=== PATIENT | male | born 1965 | race Caucasian/White ===

== ENCOUNTER 2016-11-16 14:58 | Emergency (ER) | payer BC ==
[2016-11-16 15:28] VITALS: BP 134/67
[2016-11-16] MEDS ORDERED: MECLIZINE HCL 25 MG TABLET PO ONE ×2 (16:02→17:12)
--- NOTE | 2016-11-16 16:03 | ERNOTE ---
Dizziness ER Record Date of Service: 11/16/16 Presenting Symptoms: dizziness Time Seen by Provider: 11/16/16 15:47 Source: patient, RN notes reviewed Exam Limitations: no limitations Immunizations: IMMUNIZATION HX Immunizations Up to Date Yes History of Influenza Vaccine No Hx Pneumococcal Vaccination No Allergies/Adverse Reactions: Allergies Allergy/AdvReac Type Severity Reaction Status Date / Time green pepper Allergy Severe Other Verified 11/16/16 15:28 onion Allergy Verified 11/16/16 15:28 Home Medications: HOME MEDICATIONS Tamsulosin HCl 0.4 mg PO DAILY 12/17/12 [Last Taken Unknown] Finasteride [Propecia] 1 mg PO DAILY 02/16/13 [Last Taken Unknown] Folic Acid 1 mg PO DAILY 02/16/13 [Last Taken Unknown] Hydroxychloroquine Sulfate [Plaquenil] 200 mg PO BID 02/16/13 [Last Taken Unknown] Lansoprazole [Prevacid] 30 mg PO QAM 02/16/13 [Last Taken Unknown] Methotrexate Sodium [Methotrexate] 7.5 mg PO BID 02/16/13 [Last Taken Unknown] Multivitamin [Multivitamins] 1 each PO DAILY 02/16/13 [Last Taken Unknown] Pregabalin [Lyrica] 100 mg PO BID 02/16/13 [Last Taken Unknown] Solifenacin Succinate [Vesicare] 5 mg PO DAILY 02/16/13 [Last Taken Unknown] Testosterone Cypionate [Depo-Testosterone] 200 mg IM Q14D 02/16/13 [Last Taken Unknown] buPROPion HCL [Wellbutrin] 100 mg PO DAILY 04/13/13 [Last Taken Unknown] Methylphenidate HCl [Ritalin] 10 mg PO 0700,1200 11/09/13 [Last Taken Unknown] Ddavp 0.2 mg PO HS 03/24/14 [Last Taken Unknown] Ropinirole HCl [Requip] 2 mg PO 0700,1200 03/24/14 [Last Taken Unknown] Ibuprofen [Motrin] 800 mg PO QID #100 tab 02/17/16 [Last Taken Unknown] - History of Present Illness Narrative: Isidoro is a 51 year old male brought to the ED by his for dizziness that began this morning. He reports getting out of bed, becoming dizzy, and nearly falling on his way to the bathroom. He has had no prior problems with dizziness. He reports feeling well yesterday. He has been having headaches recently but was evaluated by neurology who felt they were related to his MS. He states that his headache is not as bad as usual today. He reports sinus congestion and left ear pain, but recently saw ENT and had a clear sinus CT. Date (Duration): 11/16/16 Time (Timing): 07:30 Timing and Duration: sudden onset, still present, constant Severity: max: severe Severity: currently: moderate Associated Symptoms: Present: ringing/roaring in ear, ear pain, headache. Absent: hearing loss, nausea, vomiting, weakness, numbness, sense of confusion Sense of movement: Present: vague Fainted/near fainted while:: Present: standing Decreased ability to stand/walk:: Present: difficult, off balance Usually:: Present: walks w/o assistance Modifying Factors - (Improves): Reports: other - rest Modifying Factors - (Worsens): Reports: changing position, movement of head, standing position Review of Systems - Review of Systems Constitutional: Absent: fever, chills EYE: Absent: eye pain, vision changes ENT: Present: ear pain, nose congestion, nasal drainage. Absent: ear discharge , sore throat Respiratory: Absent: shortness of breath, cough Cardiology: Absent: chest pain, palpitations Gastrointestinal/Abdominal: Absent: nausea, vomiting Genitourinary: Present: no symptoms reported Musculoskeletal: Absent: muscle pain, neck pain Skin: Absent: rash, lesions Neurological: Present: headache, dizziness/light-headedness. Absent: weakness, numbness, tingling Endocrine: Absent: other - hyperglycemia Hematologic/Lymphatic: Present: no symptoms reported Psych: Present: anxiety, depressed - Patient's Past Medical History Patient History - Medical: Anemia, Anxiety, Arthritis, Depression, GERD, Obesity , Rheumatoid Arthritis, Other Patient History - Cardiac/Respiratory: Asthma - all, Hypertension - there is Patient History - Cancer: No Hx of Cancer Patient History - Surgical Procedures: Cholecystectomy, T & A - Family History Mother Family History - Medical: , Alzheimer's Disease, Rheumatoid Arthritis Family History - Cardiac/Respiratory: No pertinent hx - Social History Living Situations: spouse Smoking Status: Never smoker Alcohol Use: none Drug Use: none Physical Exam - Physical Exam General Appearance: Present: wd/wn, alert, no apparent distress, other - appears uncomfortable Eye Exam: Normal inspection: bilateral, PERRL: bilateral, EOMI: bilateral Ears, Nose, Throat: Present: hearing grossly normal, abnormal TM (R), normal pharynx. Absent: abnormal TM (L), nasal congestion, sinus pain/drainage Neck: Present: normal inspection, nontender, supple Respiratory: Present: no respiratory distress, normal breath sounds, lungs clear Cardiovascular/Chest: Present: no murmur, normal peripheral pulses, irregularly irregular Neurological Exam: Present: alert, oriented, no motor/sensory deficits, other - flat affect Skin Exam: Present: normal color, warm/dry ED Progress - Results and Orders Patient's Lab Results:: I have reviewed the patient's lab results. - Vital Signs Patient's Vital Signs:: I have reviewed the patient's vital signs. Vital Signs: Vital Signs 11/16/16 15:25 Temperature 35.9 C L Pulse Rate 56 L Respiratory 12 Rate Blood Pressure 134/67 O2 Sat by Pulse 99 Oximetry - EKG EKG: NSR, other - freq PVC's EKG read: Reviewed by me - Progress/Reassessment Chief Complaint: Dizziness Progress:: Improved Departure Clinical Impression: Dizziness - Departure Disposition: Home Follow Up Needed Condition: Fair Instructions: Form - Excuse from Work, School, or Physical Activity, Dizziness , [id number] Additional Instructions: Contact your doctor on Thursday for follow up regarding vestibular rehab therapy Referrals: Raquel Galan MD [Primary Care Provider] -
[2016-11-16] MEDS ORDERED: MECLIZINE HCL 25 MG TABLET ONE ×2 (16:07→17:13)
[2016-11-16 16:20] LABS: Hematocrit 39.1 % (42.0-52.0); Hemoglobin 12.8 gm/dL (13.5-18.0); Mean Cell Volume 84.1 fl (78-100); Mean Corpuscular Hemoglobin 27.5 pg (27-31); Mean Corpuscular Hgb Conc 32.7 g/dl (32-36); Mean Platelet Volume 9.2 fl (6.0-9.5); Neutrophil # 1.8 K/mm3 (1.3-6.0); Neutrophil % 56.5 % (42-75.0); Platelet Count 224 K/mm3 (150-450); Red Blood Count 4.65 M/mm3 (4.7-6.0); Red Cell Distribution Width 13.7 % (11.5-14.0); White Blood Count 3.1 K/mm3 (4.0-10.5)
[2016-11-16 16:43] LABS: Albumin * 3.1 gm/dl (3.4-5.0); Anion Gap 11.2 mmol/L (6.8-13.8); Bilirubin, Total 0.6 mg/dL (0.0-1.1); Ca. Corrected For Albumin 8.8 mg/dL (8.4-10.2); Calcium * 8.4 mg/dL (7.9-10.9); Carbon Dioxide 26.8 mmol/L (24-32.6); Total Protein 6.6 gm/dL (6.2-8.2)
== END 2016-11-16 17:22 | disposition home or self-care (01) ==
LOC: ER 14:58
DX: R42 Dizziness and giddiness (principal); Z90.49 Acquired absence of other specified parts of digestive tract

== ENCOUNTER 2017-02-10 17:46 | Emergency (ER) | payer BC ==
[2017-02-10] MEDS ORDERED: METHYLPREDNISOLONE ACETATE 80 MG/ML VIAL ONE (19:43)
--- OUTSIDE RECORDS SUMMARY | 2017-02-10 21:52 | XMS REPORT | Continuity of Care Document ---
:1965 Author Organization [facility] ([facility]) Address [address] [place] [address] Phone [phone] Care Team Providers Name Role Phone Raquel Galan Primary Care Provider [phone] Source Comments This disclosure is being made pursuant to the Care Everywhere program, applicable federal and state laws, and may not contain all informaitonavailable regarding this patient.[facility] ([facility]) Active Allergies and Adverse Reactions Allergen Noted Date Severity Reactions Comments Green Pepper 04/22/2011 OTHER Patient reported having convulsions after eating peppers. No Known Drug Allergies 07/08/2011 OTHER Onion 04/22/2011 OTHER Patient reported convulsions after eating onions. Current Medications Prescription Sig. Disp. Refills Start End Date Status Date pregabalin (LYRICA) 100 Take 200 mg by Active mg capsule mouth at bedtime. ropinirole (REQUIP) 1 Take 2 mg by mouth Active mg tablet 3 times daily. lansoprazole 30 mg Take 30 mg by mouth Active capsule daily. solifenacin (VESICARE) Take 10 mg by mouth Active 10 mg tablet daily. tamsulosin 0.4 mg ER Take 0.4 mg by Active capsule mouth daily. OTHER Trimix Active desmopressin 0.2 mg Take 0.2 mg by Active tablet mouth at bedtime. methylphenidate Take 10 mg by mouth Active (RITALIN) 10 mg tablet 2 times daily. buPROPion 100 mg tablet Take 100 mg by Active mouth daily. finasteride 5 mg tablet Take 5 mg by mouth Active daily. MULTIVITS-MINERALS/FA/L Take 1 Tab by mouth Active YCOPENE (ONE-A-DAY daily. MEN'S PO) CLONAZEPAM 0.5 mg 0.5 Tabs at bedtime 1 Active tablet 5 peginterferon beta-1a Inject 125 mcg Active (PLEGRIDY) 125 mcg/0.5 subcutaneously mL syrg injection every 14 days syringe testosterone cypionate 3 Active 200 mg/mL injection 6 zalePLON 10 mg capsule Take 10 mg by mouth 5 Active at bedtime. 6 predniSONE 5 mg tablet 5 mg daily for 2 30 tablet 0 Active weeks then 2.5 mg 7 daily for 2 weeks. meloxicam 15 mg tablet Take 1 tablet (15 90 tablet 3 Active mg total) by mouth 7 daily. folic acid 1 mg tablet Take 2 tablets (2 180 tablet 3 Active mg total) by mouth 7 daily. sulfaSALAzine 500 mg Take 3 tablets 540 tablet 1 Active tablet (1,500 mg total) by 7 mouth 2 times daily. minocycline 100 mg Take 1 capsule (100 180 capsule 3 Active capsule mg total) by mouth 7 2 times daily. methotrexate 2.5 mg Take 6 tablets (15 72 tablet 1 Active tablet mg total) by mouth 7 every week. hydroxychloroquine 200 Take 1 tablet (200 180 tablet 3 Active mg tablet mg total) by mouth 7 2 times daily. Active Problems Problem Noted Date Encounter for long-term (current) use of high-risk medication 09/03/2012 Rheumatoid arthritis with rheumatoid factor of multiple sites without 2011 organ or systems involvement Overview: Diagnosed in 06/2012,positive RF and anti-CCP, on MTX & HCQ (last eye exam ~) In 04/2013 found to have mild leukopenia & lymphopenia, folic acid increased to 5 mg/day sulfasalazine added in June 2015 - present Joint pain 07/01/2012 MS (multiple sclerosis) 12/17/2011 Pain in joint, shoulder region 11/12/2011 Status post shoulder surgery 11/12/2011 Resolved Problems Problem Noted Date Resolved Date Arthritis 07/01/2012 07/01/2012 Most Recent Encounters Date Type Specialty Providers Description 01/09/2017 Office Visit Pathology Avinash Taylor, FERNY Chief Comp: Patient Lab Services, Pfp Reported Reason For Visit 01/09/2017 Office Visit Med Rheumatology Acacia Miguel Dx: Seropositive MD rheumatoid arthritis of Avinash Taylor PA-C multiple sites (Primary Dx) 12/19/2016 Office Visit Med Rheumatology Default, Other Billg Subj: RE: Appointment - Defo canceled Avinash Taylor PA-C 12/15/2016 Telephone Med Rheumatology Acacia Miguel Dx: Rheumatoid MD arthritis with rheumatoid factor of multiple sites without organ or systems involvement (Primary Dx) 12/08/2016 Refill Med Rheumatology Avinash Taylor PA-C Dx: Rheumatoid arthritis with rheumatoid factor of multiple sites without organ or systems involvement (Primary Dx) Immunizations Name Dates Previously Given Next Due Influenza, unspecified 08/24/2015 Social History Tobacco Use Types Packs/Day Years Used Date Never Smoker Smokeless Tobacco: Never Used Alcohol Use Drinks/Week oz/Week Comments No Last Filed Vital Signs Vital Sign Reading Time Taken Blood Pressure 137/88 01/09/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 Pulse 100 01/09/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 Temperature 37.2 C (99 F) 01/09/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 Respiratory Rate - - Height 1.64 m (5' 4.57") 01/09/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 Weight 118.5 kg (261 lb 3.9 oz) 01/09/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 Body Mass Index 44.06 01/09/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 Oxygen Saturation - - Plan of Care Date Type Specialty Providers Description 07/17/2017 Appointment Med Rheumatology Acacia Miguel MD Subj: Appointment [address] [place] [address] [phone] (Fax) Health Maintenance Due Date Last Done Comments Hepatitis B Vaccine (1 of 3 - Primary Series) 1965 Tdap Vaccine 1978 Lipid Disorder Screening 1985 MMR Vaccine 1985 Td Vaccine 1985 Influenza Vaccine: Seasonal (#1) 06/16/2016 08/24/2015 Results from Last 3 Months BLOOD CELL MORPHOLOGY (01/09/2017 1:57 PM) Specimen Whole Blood CREATININE (01/09/2017 1:57 PM) Component Value Range Creatinine 0.8Comment: 0.6-1.2 mg/dL Creatinine switched to enzymatic method on 03/25/2011.GFR equation switched to IDMS-traceable MDRD equation on 03/25/2011. Calculated GFR values are not valid in clinical settings where serum creatinine is changing. Calculated GFR >90 >60 mL/min/1.73 m2 Specimen Blood ASPARTATE AMINOTRANSFERASE (01/09/2017 1:57 PM) Component Value Range AST 26Comment: 0-40 U/L Adult reference ranges updated on 10/11/13 at 830am Specimen Blood ALBUMIN (01/09/2017 1:57 PM) Component Value Range Albumin 3.7 3.4-4.8 g/dL Specimen Blood ALANINE AMINOTRANSFERASE (01/09/2017 1:57 PM) Component Value Range ALT 24Comment: 0-41 U/L The upper limit of normal for alanine aminotransferase (ALT) reference ranges for adults is controversial with some authorities recommending limit as low as 30 U/L for males and 19 U/L for females. Th ere is increased incidence of subclinical liver disease (e.g., early steatohepatitis) in patients with ALT values in the range of 31-41 U/L for males and 20-33 U/L for females. ALT values should alway s be interpreted in conjunction with clinical history, physical examination findings, and, if applicable, data from other diagnostic tests. Specimen Blood CBC (COMPLETE BLOOD COUNT) (01/09/2017 1:57 PM) Component Value Range WBC Count 5.4 3.7-10.5 K/MM3 RBC Count 4.76 4.50-6.20 M/MM3 Hemoglobin 12.8(L) 13.2-17.7 g/dL Hematocrit 39(L) 40-52 % MCV (Mean Corpuscular Volume) 82 82-99 FL MCH (Mean Corpuscular Hemoglobin) 27 25-35 PG MCHC (Mean Corpuscular Hemoglobin Concentration) 33 32-36 % Platelet Count 214 150-400 K/MM3 MPV (Mean Platelet Volume) 10.8 9.4-12.3 FL RBC Dist Width-STD 43.5 35.1-43.9 FL RBC Distrib Width 14.8(H) 9.0-14.5 % Nucleated RBC 0 /100 WBC Specimen Whole Blood ERYTHROCYTE SEDIMENTATION RATE (01/09/2017 1:57 PM) Component Value Range ESR (Erythrocyte Sedimentation Rate) 8 0-15 mm/Hr Specimen Whole Blood C-REACTIVE PROTEIN (01/09/2017 1:57 PM) Component Value Range CRP (C-Reactive Protein) 2.3(H) <=0.5 mg/dL Specimen Blood
[2017-02-11 00:16] VITALS: BP 124/92
== END 2017-02-10 19:50 | disposition home or self-care (01) ==
LOC: ER 17:46
DX: J02.9 Acute pharyngitis, unspecified (principal)

== ENCOUNTER 2017-02-24 08:37 | Emergency (ER) | payer BC ==
--- OUTSIDE RECORDS SUMMARY | 2017-02-24 08:50 | XMS REPORT | Continuity of Care Document ---
:1965 Author Organization [facility] ([facility]) Address [address] [place] [address] Phone [phone] Care Team Providers Name Role Phone Raquel Galan Primary Care Provider [phone] Source Comments This disclosure is being made pursuant to the Care Everywhere program, applicable federal and state laws, and may not contain all informaitonavailable regarding this patient.[facility] ([facility]) Active Allergies and Adverse Reactions Allergen Noted [...] Taken Blood Pressure 137/88 01/09/2017 1:02 PM MEDICAL BILLER/CODER Pulse 100 01/09/2017 1:02 PM MEDICAL BILLER/CODER Temperature 37.2 C (99 F) 01/09/2017 1:02 PM MEDICAL BILLER/CODER Respiratory Rate - - Height 1.64 m (5' 4.57") 01/09/2017 1:02 PM MEDICAL BILLER/CODER Weight 118.5 kg (261 lb 3.9 oz) 01/09/2017 1:02 PM MEDICAL BILLER/CODER Body Mass Index 44.06 01/09/2017 1:02 PM MEDICAL BILLER/CODER Oxygen Saturation - - Plan of Care Date Type Specialty Providers Description 07/17/2017 Appointment Med Rheumatology Acacia Miguel MD Subj: Appointment [address] [place] [address] [phone] (Fax) Health Maintenance Due Date Last Done [...]
[2017-02-24] MEDS ORDERED: METHYLPREDNISOLONE ACETATE 80 MG/ML VIAL IM ONE (08:52)
[2017-02-24 08:53] VITALS: BP 128/93
[2017-02-24] MEDS ORDERED: METHYLPREDNISOLONE ACETATE 80 MG/ML VIAL ONE (08:53)
--- NOTE | 2017-02-24 09:06 | ERNOTE ---
Time Seen by Provider: 02/24/17 08:43 Stated Complaint: URI Presenting Symptoms:: cough Immunizations: IMMUNIZATION HX Immunizations Up to Date Yes History of Influenza Vaccine No Hx Pneumococcal Vaccination No Allergies/Adverse Reactions: Allergies green pepper Allergy (Severe, Verified 11/16/16 15:28) Other seizure onion Allergy (Verified 11/16/16 15:28) Home Medications: HOME MEDICATIONS Tamsulosin HCl 0.4 mg PO DAILY 12/17/12 [Last Taken Unknown] Finasteride [Propecia] 1 mg PO DAILY 02/16/13 [Last Taken Unknown] Folic Acid 1 mg PO DAILY 02/16/13 [Last Taken Unknown] Hydroxychloroquine Sulfate [Plaquenil] 200 mg PO BID 02/16/13 [Last Taken Unknown] Lansoprazole [Prevacid] 30 mg PO QAM 02/16/13 [Last Taken Unknown] Methotrexate Sodium [Methotrexate] 7.5 mg PO BID 02/16/13 [Last Taken Unknown] Multivitamin [Multivitamins] 1 each PO DAILY 02/16/13 [Last Taken Unknown] Pregabalin [Lyrica] 100 mg PO BID 02/16/13 [Last Taken Unknown] Solifenacin Succinate [Vesicare] 5 mg PO DAILY 02/16/13 [Last Taken Unknown] Testosterone Cypionate [Depo-Testosterone] 200 mg IM Q14D 02/16/13 [Last Taken Unknown] Methylphenidate HCl [Ritalin] 10 mg PO 0700,1200 11/09/13 [Last Taken Unknown] Ddavp 0.2 mg PO HS 03/24/14 [Last Taken Unknown] rOPINIRole HCL [Requip] 2 mg PO 0700,1200 03/24/14 [Last Taken Unknown] Ibuprofen [Motrin] 800 mg PO QID #100 tab 02/17/16 [Last Taken Unknown] Albuterol Sulfate [Ventolin HFA] 2 puff IH Q6H PRN 7 Days 02/24/17 [Last Taken Unknown] Benzonatate [Tessalon Perle] 100 mg PO TID #20 capsule 02/24/17 [Last Taken Unknown] Doxycycline Monohydrate 100 mg PO BID #20 tablet 02/24/17 [Last Taken Unknown] predniSONE [Deltasone] 20 mg PO BID #10 tablet 02/24/17 [Last Taken Unknown] - History of Present Ilness Narrative: Patient seen here by me approximately 2 weeks ago for similar symptoms. Started on both albuterol inhaler, azithromycin and given a shot of Depo- Medrol. He said the symptoms started to return over the past 48 hours. Timing: getting worse Severity: moderate Frequency/Possible Cause: Reports: occasional episodes Modifying Factors - Improves: Reports: antibiotics, albuterol Associated Symptoms: Reports: cough Review of Systems - Review of Systems Constitutional: Present: See HPI EYE: Present: no symptoms reported ENT: Present: no symptoms reported Respiratory: Present: cough, wheezing Cardiology: Present: no symptoms reported Gastrointestinal/Abdominal: Present: no symptoms reported Genitourinary: Present: no symptoms reported Musculoskeletal: Present: no symptoms reported Skin: Present: no symptoms reported Neurological: Present: no symptoms reported Endocrine: Present: no symptoms reported Hematologic/Lymphatic: Present: no symptoms reported Psych: Present: no symptoms reported - Patient's Past Medical History Patient History - Medical: Anemia, Anxiety, Arthritis, Depression, GERD, Obesity , Rheumatoid Arthritis, Other Patient History - Cardiac/Respiratory: Bronchitis Patient History - Cancer: No Hx of Cancer Patient History - Surgical Procedures: Cholecystectomy, T & A Patient History - Other: None - Family History Mother Family History - Medical: , Alzheimer's Disease, Rheumatoid Arthritis Family History - Cardiac/Respiratory: No pertinent hx - Social History Living Situations: spouse Abuse History: No History of abuse Psych History: No pertinent hx Alcohol Use: none Drug Use: none - Immunizations Immunizations Up to Date: Yes Hx Pneumococcal Vaccination: No History of Influenza Vaccine: No Physical Exam - Physical Exam General Appearance: Present: wd/wn, alert, mild distress Eye Exam: Normal inspection: bilateral, PERRL: bilateral Ears, Nose, Throat: Present: normal ENT inspection, H, normal pharynx Neck: Present: normal inspection, nontender Respiratory: Present: no accessory muscle use, chest nontender, crackles, wheezing Cardiovascular/Chest: Present: regular rate, rhythm, no murmur, normal peripheral pulses Gastrointestinal/Abdominal: Present: normal bowel sounds, nontender, nondistended, soft, no organomegaly Rectal Exam: Present: deferred Back Exam: Present: normal inspection, normal range of motion Extremity Exam: Present: normal inspection, non-tender, no edema, normal range of motion Neurological Exam: Present: alert, oriented, normal mood/affect Skin Exam: Present: normal color, warm/dry Lymphatic Exam: Present: no adenopathy ED Progress - Vital Signs Patient's Vital Signs:: I have reviewed the patient's vital signs. Vital Signs: Vital Signs 02/24/17 08:43 Temperature 36.6 C Pulse Rate 79 Respiratory 18 Rate Blood Pressure 128/93 O2 Sat by Pulse 97 Oximetry - Progress/Reassessment Chief Complaint: Cough Plan - Plan Plan: He will be given another dose of 80 mg of Depo-Medrol IM, be placed on doxycycline 100 mg twice a day for 10 daysand we will also provide Tessalon Perles for his cough. Departure - Departure Clinical Impression: Upper respiratory infection Qualifiers: URI type: unspecified URI Qualified Code(s): J06.9 - Acute upper respiratory infection, unspecified Disposition: Home self-care Condition: Good Instructions: Upper Respiratory Infection, Adult, [id number] Referrals: Raquel Galan MD [Primary Care Provider] - Prescriptions: Albuterol Sulfate [Ventolin HFA] 2 puff IH Q6H PRN 7 Days PRN Reason: Wheezing Benzonatate [Tessalon Perle] 100 mg PO TID #20 capsule Doxycycline Monohydrate 100 mg PO BID #20 tablet predniSONE [Deltasone] 20 mg PO BID #10 tablet
== END 2017-02-24 09:25 | disposition home or self-care (01) ==
LOC: ER 08:37
DX: J06.9 Acute upper respiratory infection, unspecified (principal); M06.9 Rheumatoid arthritis, unspecified

== ENCOUNTER 2017-04-28 17:27 | Emergency (ER) | payer BC ==
--- NOTE | 2017-04-28 18:24 | ERNOTE ---
Upper Extremity HPI - Narrative Date of Service: 04/28/17 - General Extremities Pain Location: shoulder: left Time Seen by Provider: 04/28/17 18:08 Source: patient, RN notes reviewed, old records Exam Limitations: no limitations - Immun/Allergies/Home Medications Immunizations: IMMUNIZATION HX Immunizations Up to Date Yes History of Influenza Vaccine Yes Hx Pneumococcal Vaccination No Allergies/Adverse Reactions: Allergies Allergy/AdvReac Type Severity Reaction Status Date / Time green pepper Allergy Severe Other Verified 04/28/17 17:44 onion Allergy Verified 04/28/17 17:44 Home Medications: HOME MEDICATIONS Tamsulosin HCl 0.4 mg PO DAILY 12/17/12 [Last Taken Unknown] Finasteride [Propecia] 1 mg PO DAILY 02/16/13 [Last Taken Unknown] Folic Acid 1 mg PO DAILY 02/16/13 [Last Taken Unknown] Hydroxychloroquine Sulfate [Plaquenil] 200 mg PO BID 02/16/13 [Last Taken Unknown] Lansoprazole [Prevacid] 30 mg PO QAM 02/16/13 [Last Taken Unknown] Methotrexate Sodium [Methotrexate] 7.5 mg PO BID 02/16/13 [Last Taken Unknown] Multivitamin [Multivitamins] 1 each PO DAILY 02/16/13 [Last Taken Unknown] Pregabalin [Lyrica] 100 mg PO BID 02/16/13 [Last Taken Unknown] Solifenacin Succinate [Vesicare] 5 mg PO DAILY 02/16/13 [Last Taken Unknown] Testosterone Cypionate [Depo-Testosterone] 200 mg IM Q14D 02/16/13 [Last Taken Unknown] Methylphenidate HCl [Ritalin] 10 mg PO 0700,1200 11/09/13 [Last Taken Unknown] rOPINIRole HCL [Requip] 2 mg PO 0700,1200 03/24/14 [Last Taken Unknown] Ibuprofen [Motrin] 800 mg PO QID #100 tab 02/17/16 [Last Taken Unknown] Albuterol Sulfate [Ventolin HFA] 2 puff IH Q6H PRN 7 Days 02/24/17 [Last Taken Unknown] Doxycycline Monohydrate 100 mg PO BID #20 tablet 02/24/17 [Last Taken Unknown] predniSONE [Deltasone] 20 mg PO BID #10 tablet 02/24/17 [Last Taken Unknown] Cyclobenzaprine HCl [Flexeril] 10 mg PO TID PRN #16 tab 04/28/17 [Last Taken Unknown] Peginterferon Beta-1A [Plegridy] 1 ml SQ 04/28/17 [Last Taken Unknown] - History of Present Illness Narrative: 51 y/o male ambulatory to the ED for left shoulder pain that was present when he woke up this afternoon (he works nights). He denies any injury, but reports maybe doing more work than usual. He has had 2 surgeries on the shoulder in the past. He also has RA. He has not taken anything for pain. Occurred: this afternoon Method of Injury: Reports: no apparent injury Associated Symptoms: Denies: tingling, weakness, numbness distally Review of Systems - Review of Systems Constitutional: Absent: recent illness, fever, chills EYE: Present: no symptoms reported ENT: Present: no symptoms reported Respiratory: Present: no symptoms reported Cardiology: Present: no symptoms reported Gastrointestinal/Abdominal: Present: no symptoms reported Genitourinary: Present: no symptoms reported Musculoskeletal: Present: muscle pain, neck pain, joint pain. Absent: back pain , muscle stiffness, joint swelling Skin: Absent: lesions, lumps, change in color Neurological: Absent: weakness, numbness, tingling Endocrine: Present: no symptoms reported Hematologic/Lymphatic: Present: no symptoms reported Psych: Present: no symptoms reported - Patient's Past Medical History Patient History - Medical: Anemia, Anxiety, Arthritis, Depression, GERD, Obesity , Rheumatoid Arthritis, Other Patient History - Cardiac/Respiratory: Bronchitis Patient History - Cancer: No Hx of Cancer Patient History - Surgical Procedures: Cholecystectomy, T & A Patient History - Other: None - Family History Mother Family History - Medical: , Alzheimer's Disease, Rheumatoid Arthritis Family History - Cardiac/Respiratory: No pertinent hx - Social History Living Situations: spouse Abuse History: No History of abuse Psych History: No pertinent hx Smoking Status: Never smoker Do you dip or chew tobacco: No Alcohol Use: none Drug Use: none - Immunizations Immunizations Up to Date: Yes Hx Pneumococcal Vaccination: No History of Influenza Vaccine: Yes Physical Exam - Physical Exam General Appearance: Present: alert, no apparent distress, obese Respiratory: Present: no respiratory distress, no accessory muscle use Cardiovascular/Chest: Present: normal peripheral pulses Peripheral Pulses: N=norm/S=strong/W=weak/B=bound/A=absent: Radial (R): Strong, Radial (L): Strong Extremity Exam: Present: normal inspection, decreased range of motion - Left shoulder. Absent: joint redness, joint swelling, extremity edema Neurological Exam: Present: alert, oriented, no motor/sensory deficits, other - flat affect, depressed appearing. Absent: normal mood/affect Skin Exam: Present: normal color, warm/dry ED Progress - Vital Signs Patient's Vital Signs:: I have reviewed the patient's vital signs. Vital Signs: Vital Signs 04/28/17 17:33 Temperature 36.8 C Pulse Rate 81 Respiratory 16 Rate Blood Pressure 142/93 - X-Ray X-Ray #1 X-Ray: shoulder Interpretation: Reviewed by me X-ray Comments: Left - No acute osseous abnormalities - Progress/Reassessment Chief Complaint: Shoulder Injury/Pain Progress:: Unchanged Departure Clinical Impression: Left shoulder pain Qualifiers: Chronicity: acute Qualified Code(s): M25.512 - Pain in left shoulder Arthritis, rheumatoid Qualifiers: Rheumatoid arthritis location: unspecified site Rheumatoid factor presence: unspecified presence Qualified Code(s): M06.9 - Rheumatoid arthritis, unspecified - Departure Disposition: Home Follow Up Needed Condition: Stable Instructions: Shoulder Pain, [id number], Form - Excuse from Work, School, or Physical Activity Referrals: Raquel Galan MD [Primary Care Provider] - Prescriptions: Cyclobenzaprine HCl [Flexeril] 10 mg PO TID PRN #16 tab PRN Reason: MUSCLE SPASMS
--- OUTSIDE RECORDS SUMMARY | 2017-04-28 18:24 | XMS REPORT | Continuity of Care Document ---
:1965 Author Organization [facility] ([facility]) Address [address] [place] [address] Phone [phone] Care Team Providers Name Role Phone Raquel Galan Primary Care Provider [phone] Source Comments This disclosure is being made pursuant to the Care Everywhere program, applicable federal and state laws, and may not contain all informaitonavailable regarding this patient.[facility] ([facility]) Active Allergies and Adverse Reactions Allergen [...] Noted Date Resolved Date Arthritis 07/01/2012 07/01/2012 Immunizations Name Dates Previously Given Next Due Influenza, unspecified 08/24/2015 Social History Tobacco Use Types Packs/Day Years Used Date Never Smoker Smokeless Tobacco: Never Used Alcohol Use Drinks/Week oz/Week Comments No Last Filed Vital Signs Vital Sign Reading Time Taken Blood Pressure 137/88 01/09/2017 1:02 PM [employer]GER [employer] Pulse 100 01/09/2017 1:02 PM [employer] [employer] Temperature 37.2 C (99 F) 01/09/2017 1:02 PM [employer] [employer] Respiratory Rate - - Height 1.64 m (5' 4.57") 01/09/2017 1:02 PM [employer] [employer] Weight 118.5 kg (261 lb 3.9 oz) 01/09/2017 1:02 PM [facility] [employer] Body Mass Index 44.06 01/09/2017 1:02 PM [employer] [employer] Oxygen Saturation - - Plan of Care Date Type Specialty Providers Description 07/17/2017 Appointment Med Rheumatology Acacia Miguel MD Subj: Appointment [address] [place] [address] [phone] (Fax) Health Maintenance Due Date Last Done Comments Hepatitis B Vaccine (1 of 3 - Primary Series) 1965 Tdap Vaccine 1978 Lipid Disorder Screening 1985 MMR Vaccine 1985 Td Vaccine 1985 Influenza Vaccine: Seasonal (#1) 06/16/2016 08/24/2015 Results from Last 3 Months Not on file
[2017-04-28] MEDS ORDERED: TRIAMCINOLONE ACETONIDE 40 MG/ML VIAL IM ONE (18:59)
[2017-04-28] MEDS ORDERED: TRIAMCINOLONE ACETONIDE 40 MG/ML VIAL ONE (19:01)
[2017-04-28 19:47] VITALS: BP 137/89
== END 2017-04-28 19:08 | disposition home or self-care (01) ==
LOC: ER 17:27
DX: M25.512 Pain in left shoulder (principal); M06.9 Rheumatoid arthritis, unspecified; D64.9 Anemia, unspecified; F41.8 Other specified anxiety disorders; K21.9 Gastro-esophageal reflux disease without esophagitis

== ENCOUNTER 2017-06-26 09:20 | Emergency (ER) | payer BC ==
--- NOTE | 2017-06-26 09:50 | ERNOTE ---
Medical Problem HPI - Narrative Date of Service: 06/26/17 - General Chief Complaint: Fever Time Seen by Provider: 06/26/17 09:38 Source: patient Exam Limitations: no limitations - Immun/Allergies/Home Medications Immunizations: IMMUNIZATION HX Immunizations Up to Date Yes History of Influenza Vaccine Yes Hx Pneumococcal Vaccination No Allergies/Adverse Reactions: Allergies green pepper Allergy (Severe, Verified 06/26/17 09:28) Other seizure onion Allergy (Verified 06/26/17 09:28) Home Medications: HOME MEDICATIONS Tamsulosin HCl 0.4 mg PO DAILY 12/17/12 [Last Taken Unknown] Finasteride [Propecia] 1 mg PO DAILY 02/16/13 [Last Taken Unknown] Folic Acid 1 mg PO DAILY 02/16/13 [Last Taken Unknown] Hydroxychloroquine Sulfate [Plaquenil] 200 mg PO BID 02/16/13 [Last Taken Unknown] Lansoprazole [Prevacid] 30 mg PO QAM 02/16/13 [Last Taken Unknown] Methotrexate Sodium [Methotrexate] 7.5 mg PO BID 02/16/13 [Last Taken Unknown] Multivitamin [Multivitamins] 1 each PO DAILY 02/16/13 [Last Taken Unknown] Pregabalin [Lyrica] 100 mg PO BID 02/16/13 [Last Taken Unknown] Solifenacin Succinate [Vesicare] 5 mg PO DAILY 02/16/13 [Last Taken Unknown] Testosterone Cypionate [Depo-Testosterone] 200 mg IM Q14D 02/16/13 [Last Taken Unknown] Methylphenidate HCl [Ritalin] 10 mg PO 0700,1200 11/09/13 [Last Taken Unknown] rOPINIRole HCL [Requip] 2 mg PO 0700,1200 03/24/14 [Last Taken Unknown] Ibuprofen [Motrin] 800 mg PO QID #100 tab 02/17/16 [Last Taken Unknown] Albuterol Sulfate [Ventolin HFA] 2 puff IH Q6H PRN 7 Days 02/24/17 [Last Taken Unknown] Doxycycline Monohydrate 100 mg PO BID #20 tablet 02/24/17 [Last Taken Unknown] predniSONE [Deltasone] 20 mg PO BID #10 tablet 02/24/17 [Last Taken Unknown] Cyclobenzaprine HCl [Flexeril] 10 mg PO TID PRN #16 tab 04/28/17 [Last Taken Unknown] Peginterferon Beta-1A [Plegridy] 1 ml SQ 04/28/17 [Last Taken Unknown] Sulfamethoxazole/Trimethoprim [Bactrim 400-80 mg Tablet] 1 each PO BID #20 tablet 06/26/17 [Last Taken Unknown] - History of Present History Narrative: patient c/o fever all night c/o right ear pain Timing: constant Severity: moderate Modifying Factors - (Improves): Present: other - nothing Modifying Factors - (Worsens): Present: eating Review of Systems - Review of Systems Constitutional: Present: fever, chills, weakness EYE: Present: no symptoms reported ENT: Present: ear pain Respiratory: Present: no symptoms reported Cardiology: Present: no symptoms reported Gastrointestinal/Abdominal: Present: no symptoms reported Genitourinary: Present: no symptoms reported Musculoskeletal: Present: no symptoms reported Skin: Present: no symptoms reported Neurological: Present: no symptoms reported Endocrine: Present: no symptoms reported Hematologic/Lymphatic: Present: no symptoms reported Psych: Present: no symptoms reported - Patient's Past Medical History Patient History - Medical: Anemia, Anxiety, Arthritis, Depression, GERD, Obesity , Rheumatoid Arthritis, Other Patient History - Cardiac/Respiratory: Bronchitis Patient History - Cancer: No Hx of Cancer Patient History - Surgical Procedures: Cholecystectomy, T & A Patient History - Other: None - Family History Family History:: no untoward family reactions to anesthesia, no familial bleeding tendencies - Family History Mother Family History - Medical: , Alzheimer's Disease, Rheumatoid Arthritis Family History - Cardiac/Respiratory: No pertinent hx Family History - Cancer: No pertinent family hx - Social History Living Situations: home Abuse History: No History of abuse Psych History: No pertinent hx Does anyone smoke in the home?: No Smoking Status: Never smoker Have you smoked in the past 12 months: No Do you dip or chew tobacco: No Patient requests Smoking Cessation Consult: No Initiate information on Smoking Cessation: No Alcohol Use: none Drug Use: none - Immunizations Immunizations Up to Date: Yes Hx Pneumococcal Vaccination: No History of Influenza Vaccine: Yes Physical Exam - Physical Exam General Appearance: Present: alert, moderate distress Head Exam: Present: normal inspection, no evidence of injury Eye Exam: Normal inspection: bilateral, PERRL: bilateral, EOMI: bilateral Ears, Nose, Throat: Present: abnormal TM (R), normal pharynx Neck: Present: normal inspection, nontender Respiratory: Present: no respiratory distress, normal breath sounds, no accessory muscle use, chest nontender, lungs clear Cardiovascular/Chest: Present: regular rate, rhythm Peripheral Pulses: N=norm/S=strong/W=weak/B=bound/A=absent: Carotid (R): Normal , Carotid (L): Normal, Radial (R): Normal, Radial (L): Normal, Femoral (R): Normal, Femoral (L): Normal, Dorsalis-pedis (R): Normal, Dorsalis-pedis (L): Normal Gastrointestinal/Abdominal: Present: normal bowel sounds Back Exam: Present: normal inspection, normal range of motion, no CVA tenderness , no vertebral tenderness Extremity Exam: Present: normal inspection, non-tender, normal range of motion, no edema Neurological Exam: Present: alert, oriented, normal mood/affect, no motor/ sensory deficits DTR: N=norm/NB=norm/brisk/A=abs/DD=dull/dimin/HC=hyperactive: Bicep (R): Normal , Bicep (L): Normal, Tricep (R): Normal, Tricep (L): Normal, Knee (R): Normal Skin Exam: Present: normal color, warm/dry Lymphatic Exam: Present: no adenopathy ED Progress - Vital Signs Patient's Vital Signs:: I have reviewed the patient's vital signs. Vital Signs: Vital Signs 06/26/17 09:22 Temperature 36.7 C Pulse Rate 93 Respiratory 12 Rate Blood Pressure 137/92 O2 Sat by Pulse 97 Oximetry - Progress/Reassessment Chief Complaint: Fever Progress:: Improved Plan - Plan Plan: to be dismissed Departure - Departure Clinical Impression: Otitis media Disposition: Home self-care Condition: Fair Instructions: Otitis Media, Adult, [id number] Referrals: Raquel Galan MD [Primary Care Provider] - Prescriptions: Sulfamethoxazole/Trimethoprim [Bactrim 400-80 mg Tablet] 1 each PO BID #20 tablet
[2017-06-26 16:36] VITALS: BP 136/90
== END 2017-06-26 10:43 | disposition home or self-care (01) ==
LOC: ER 09:20
DX: H66.91 Otitis media, unspecified, right ear (principal); M19.90 Unspecified osteoarthritis, unspecified site; K21.9 Gastro-esophageal reflux disease without esophagitis

== ENCOUNTER 2017-09-06 12:24 | Emergency (ER) | payer BC ==
[2017-09-06 12:36] VITALS: BP 131/66
[2017-09-06] MEDS ORDERED: METHYLPREDNISOLONE ACETATE 80 MG/ML VIAL IM ONE (12:49)
--- NOTE | 2017-09-06 12:50 | ERNOTE ---
Upper Extremity HPI - Narrative Date of Service: 09/06/17 - General Extremities Pain Location: wrist: right Time Seen by Provider: 09/06/17 12:37 Source: patient, RN notes reviewed Exam Limitations: no limitations - Immun/Allergies/Home Medications Immunizations: IMMUNIZATION HX Immunizations Up to Date Yes History of Influenza Vaccine Yes Hx Pneumococcal Vaccination No Allergies/Adverse Reactions: Allergies Allergy/AdvReac Type Severity Reaction Status Date / Time green pepper Allergy Severe Other Verified 09/06/17 12:37 onion Allergy Verified 09/06/17 12:37 Home Medications: HOME MEDICATIONS Tamsulosin HCl 0.4 mg PO DAILY 12/17/12 [Last Taken Unknown] Finasteride [Propecia] 1 mg PO DAILY 02/16/13 [Last Taken Unknown] Folic Acid 1 mg PO DAILY 02/16/13 [Last Taken Unknown] Hydroxychloroquine Sulfate [Plaquenil] 200 mg PO BID 02/16/13 [Last Taken Unknown] Lansoprazole [Prevacid] 30 mg PO QAM 02/16/13 [Last Taken Unknown] Methotrexate Sodium [Methotrexate] 7.5 mg PO BID 02/16/13 [Last Taken Unknown] Multivitamin [Multivitamins] 1 each PO DAILY 02/16/13 [Last Taken Unknown] Pregabalin [Lyrica] 100 mg PO BID 02/16/13 [Last Taken Unknown] Solifenacin Succinate [Vesicare] 5 mg PO DAILY 02/16/13 [Last Taken Unknown] Testosterone Cypionate [Depo-Testosterone] 200 mg IM Q14D 02/16/13 [Last Taken Unknown] Methylphenidate HCl [Ritalin] 10 mg PO 0700,1200 11/09/13 [Last Taken Unknown] rOPINIRole HCL [Requip] 2 mg PO 0700,1200 03/24/14 [Last Taken Unknown] Ibuprofen [Motrin] 800 mg PO QID #100 tab 02/17/16 [Last Taken Unknown] Albuterol Sulfate [Ventolin HFA] 2 puff IH Q6H PRN 7 Days inhaler 02/24/17 [ Last Taken Unknown] Doxycycline Monohydrate 100 mg PO BID #20 tablet 02/24/17 [Last Taken Unknown] predniSONE [Deltasone] 20 mg PO BID #10 tablet 02/24/17 [Last Taken Unknown] Cyclobenzaprine HCl [Flexeril] 10 mg PO TID PRN #16 tab 06/13/17 [Last Taken Unknown] Peginterferon Beta-1A [Plegridy] 1 ml SQ 04/28/17 [Last Taken Unknown] Sulfamethoxazole/Trimethoprim [Bactrim 400-80 mg Tablet] 1 each PO BID #20 tablet 06/26/17 [Last Taken Unknown] - History of Present Illness Narrative: 52 year old male presents to the ED with pain in his right wrist that began yesterday. He has RA and has had flare ups in the wrist in the past. His pain radiates into the hand and fingers. It is much worse with movement. He has taken Tylenol for pain without any improvement. Method of Injury: Reports: no apparent injury Associated Symptoms: Denies: tingling, weakness, numbness distally Prior Treament: Reports: similar symptoms before. Denies: recently seen Review of Systems - Review of Systems Constitutional: Absent: recent illness, fever, chills EYE: Present: no symptoms reported ENT: Present: no symptoms reported Respiratory: Present: no symptoms reported Cardiology: Present: no symptoms reported Gastrointestinal/Abdominal: Absent: nausea, vomiting, abdominal pain Genitourinary: Present: no symptoms reported Musculoskeletal: Present: joint pain. Absent: joint swelling Skin: Absent: lesions, lumps, change in color Neurological: Present: See HPI Endocrine: Present: no symptoms reported Hematologic/Lymphatic: Present: no symptoms reported Psych: Present: no symptoms reported - Patient's Past Medical History Patient History - Medical: Anemia, Anxiety, Arthritis, Depression, GERD, Obesity , Rheumatoid Arthritis, Other Patient History - Cardiac/Respiratory: Bronchitis Patient History - Cancer: No Hx of Cancer Patient History - Surgical Procedures: Cholecystectomy, T & A Patient History - Other: None - Family History Mother Family History - Medical: , Alzheimer's Disease, Rheumatoid Arthritis Family History - Cardiac/Respiratory: No pertinent hx Family History - Cancer: No pertinent family hx - Social History Living Situations: home Abuse History: No History of abuse Psych History: No pertinent hx Smoking Status: Never smoker Have you smoked in the past 12 months: No Do you dip or chew tobacco: No - Immunizations Immunizations Up to Date: Yes Hx Pneumococcal Vaccination: No History of Influenza Vaccine: Yes Physical Exam - Physical Exam General Appearance: Present: wd/wn, alert, no apparent distress, obese, other - Appears uncomfortable Respiratory: Present: no respiratory distress, normal breath sounds, no accessory muscle use, lungs clear Cardiovascular/Chest: Present: regular rate, rhythm, no murmur, normal peripheral pulses Peripheral Pulses: N=norm/S=strong/W=weak/B=bound/A=absent: Radial (R): Strong, Radial (L): Strong Extremity Exam: Present: no edema, decreased range of motion - Right wrist and hand, wrist warm to touch, bony tenderness - Right wrist. Absent: joint redness , joint swelling Neurological Exam: Present: alert, oriented, no motor/sensory deficits, other - depressed appearing, flat affect. Absent: normal mood/affect Skin Exam: Present: normal color, warm/dry ED Progress - Vital Signs Patient's Vital Signs:: I have reviewed the patient's vital signs. Vital Signs: Vital Signs 09/06/17 12:32 Temperature 37.7 C H Pulse Rate 110 H Respiratory 18 Rate Blood Pressure 131/66 O2 Sat by Pulse 94 Oximetry - Progress/Reassessment Chief Complaint: Wrist Injury/Pain Progress:: Unchanged Plan - Plan Plan: Kenalog 80 mg given IM. To f/u with PCP or rheumatology if no improvement. Work excuse given for tonight. Departure Clinical Impression: Rheumatoid arthritis involving right wrist Qualifiers: Rheumatoid factor presence: unspecified presence Qualified Code(s): M06.9 - Rheumatoid arthritis, unspecified - Departure Disposition: Home Follow Up Needed Condition: Stable Instructions: Form - Excuse from Work, School, or Physical Activity, Wrist Pain , [id number] Additional Instructions: Follow up with your doctor if symptoms continue Continue your routine medications Referrals: Raquel Galan MD [Primary Care Provider] -
[2017-09-06] MEDS ORDERED: METHYLPREDNISOLONE ACETATE 80 MG/ML VIAL ONE (13:03)
== END 2017-09-06 13:15 | disposition home or self-care (01) ==
LOC: ER 12:24
DX: M06.831 Other specified rheumatoid arthritis, right wrist (principal)

== ENCOUNTER 2018-05-24 08:56 | Inpatient (IN) ==
[~2018-05-24 08:56] MED LIST: MORPHINE SULFATE 15 MG TABLET.SA PO PRN; RINGER'S SOLUTION,LACTATED 1,000 ML IV ONE; RINGER'S SOLUTION,LACTATED 1,000 ML IV PRN; ROPIVACAINE HCL/PF 100 MG, EPINEPHrine 0.2 MG, KETOROLAC TROMETHAMINE 15 MG in NORMAL S... IJ PRN; ceFAZolin SODIUM 1 GM VIAL IV PRN
[2018-05-24 09:28] LABS: Hematocrit 32.1 % (42.0-52.0); Mean Cell Volume 76.2 fl (78-100); Mean Corpuscular Hemoglobin 23.8 pg (27-31); Mean Corpuscular Hgb Conc 31.2 g/dl (32-36); Neutrophil # 3.3 K/mm3 (1.3-6.0); Neutrophil % 59.9 % (42-75.0); Platelet Count 228 K/mm3 (150-450); Red Blood Count 4.21 M/mm3 (4.7-6.0); Red Cell Distribution Width 15.6 % (11.5-14.0); White Blood Count 5.5 K/mm3 (4.0-10.5)
[2018-05-24 09:44] LABS: Anion Gap 8.8 mmol/L (6.8-13.8); BUN/Creatinine Ratio 19.5 (9.0-21.6); Calcium * 8.6 mg/dL (7.9-10.9); Carbon Dioxide 30.4 mmol/L (24-32.6); Potassium 4.2 mmol/L (3.4-4.6)
--- NOTE | 2018-05-24 10:24 | ANES ---
Anesthesia Pre Procedure Eval Vitals/Labs: Last Vital Signs Temp 36.4 C 05/24/18 09:38 Pulse 84 05/24/18 09:38 Resp 16 05/24/18 09:38 BP 129/73 05/24/18 09:38 HOME MEDICATIONS Tamsulosin HCl 0.4 mg PO DAILY 12/17/12 [Last Taken Unknown] Hydroxychloroquine Sulfate [Plaquenil] 200 mg PO DAILY 02/16/13 [Last Taken Unknown] Lansoprazole [Prevacid] 30 mg PO QAM PRN 02/16/13 [Last Taken Unknown] Methotrexate Sodium [Methotrexate] 15 mg PO Q7D MDD 3 TABS BID ON Thursdays [Last Taken 03/11/18] rOPINIRole HCL [Requip] 2 mg PO 0700,1200 03/24/14 [Last Taken Unknown] Cholecalciferol (Vitamin D3) [Vitamin D3] 5,000 unit PO DAILY 03/10/18 [Last Taken Unknown] Dimethyl Fumarate [Tecfidera] 240 mg PO BID 03/10/18 [Last Taken Unknown] Finasteride [Proscar] 5 mg PO HS 03/10/18 [Last Taken Unknown] Methylphenidate HCl [Ritalin] 10 mg PO BID 03/10/18 [Last Taken Unknown] Nortriptyline HCl 50 mg PO HS 03/10/18 [Last Taken Unknown] Solifenacin Succinate [Vesicare] 10 mg PO DAILY 03/10/18 [Last Taken Unknown] sulfaSALAzine [Azulfidine] 1,500 mg PO BID 03/10/18 [Last Taken Unknown] Dalfampridine [Ampyra] 10 mg PO BID 03/17/18 [Last Taken Unknown] Desmopressin Acetate [Ddavp] 0.2 mg PO HS 03/17/18 [Last Taken Unknown] Folic Acid 10 mg PO BID 03/17/18 [Last Taken Unknown] Multivit-Min/FA/Vit K/Lycopene [One-A-Day Men's 50 Plus Tablet] 1 ea PO DAILY [Last Taken Unknown] rOPINIRole HCL [Requip] 3 mg PO HS 03/17/18 [Last Taken Unknown] Minocycline HCl [Minocin] 100 mg PO DAILY 03/29/18 [Last Taken Unknown] Morphine Sulfate [Ms Contin] 15 mg PO Q12H #20 tablet.sa 03/31/18 [Last Taken Unknown] Sennosides/Docusate Sodium [Senokot-S] 2 tab PO HS #30 tab 03/31/18 [Last Taken Unknown] tramadol 50 mg tablet See Label Instructions PO .COMPLEX PRN #40 tab 05/21/18 [ Last Taken Unknown] Allergies/Adverse Reactions: Allergies Allergy/AdvReac Type Severity Reaction Status Date / Time house dust mite Allergy asthma Verified 05/24/18 09:57 green pepper AdvReac Intermediate CONVULSIONS Verified 05/24/18 09:57 onion AdvReac Intermediate CONVULSIONS Verified 05/24/18 09:57 Medical History (Last Reviewed 05/24/18 @ 10:23 by Dutch Soto CRNA) Anemia Anxiety and depression Asthma DJD (degenerative joint disease) Hypertension Hypogonadism in male Multiple sclerosis Obesity Restless legs Rheumatoid arthritis Hx of tonsillectomy Surgical History (Last Reviewed 05/24/18 @ 10:23 by Dutch Soto CRNA) History of total left hip arthroplasty H/O colonoscopy with polypectomy Hx laparoscopic cholecystectomy Onset Date: ~11/1996 Hx of nasal septoplasty S/P arthroscopy of left shoulder S/P carpal tunnel release S/P left knee arthroscopy Onset Date: ~02/2013 S/p bilateral myringotomy with tube placement Family History (Last Reviewed 05/24/18 @ 10:23 by Dutch Soto CRNA) Brother Dementia Daughter No problems noted. Father Stomach ulcer Mother Alzheimers disease Esophageal cancer Sister No problems noted. Son No problems noted. - Family Anesthesia History Family History:: no untoward family reactions to anesthesia - Airway/Neck/Teeth Within Normal Limits:: Yes Denture Type: Full- Upper & Lower Neck Exam: normal inspection Mallampatti Score: 2 Thyromental (T-M) distance: > 6 cm Mandibulo Hyoid distance: > 3 cm - Respiratory Respiratory: lungs clear Smoking Status: Never smoker Sleep Apnea currently treated: No - Cardiovascular Patient History - Cardiac/Respiratory: Arrhythmias Tolerates Activity: Fair Heart Sounds: S1 & S2, Irregular - Anesthesia Assessment and Plan ASA Class: III Anesthesia Type Plan: Spinal Planned difficult intubation/equipment available: No
[2018-05-24] MEDS: NORMAL SALINE 1,000 ML IV PRN ×2 (11:15→12:53)
[2018-05-24] MEDS ORDERED: ONDANSETRON HCL/PF 2 MG/ML VIAL IV PRN (13:59)
[2018-05-24] MEDS ORDERED: ACETAMINOPHEN 500 MG TABLET PO PRN (13:59)
[2018-05-24] MEDS ORDERED: ZOLPIDEM TARTRATE 5 MG TABLET PO PRN (13:59)
[2018-05-24] MEDS ORDERED: diphenhydrAMINE HCL 50 MG/ML VIAL IV PRN (13:59)
[2018-05-24] MEDS ORDERED: MAGNESIUM HYDROXIDE 30 ML UDC PO PRN (13:59)
[2018-05-24] MEDS ORDERED: MAG HYDROX/ALUMINUM HYD/SIMETH 30 ML UDC PO PRN (13:59)
[2018-05-24] MEDS ORDERED: PROMETHAZINE HCL 5 MG in DEXTROSE 5 % IN WATER 50 ML IV PRN ×2 (13:59)
[2018-05-24] MEDS ORDERED: DEXTROSE 5%-LACTATED RINGERS 1,000 ML IV PRN (13:59)
--- NOTE | 2018-05-24 13:59 | POSTOP NO ---
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
--- NOTE | 2018-05-24 14:17 | ANES ---
Post Anesthesia Discharge - Transfer of Care Transfer of Care handoff given to nurse: Yes - Discharge from PACU Discharge from PACU when meets criteria: Yes
[2018-05-24] MEDS ORDERED: MORPHINE SULFATE 2 MG/ML DISP.SYRIN IV PRN (14:36)
[2018-05-24] MEDS: ceFAZolin SODIUM 1 GM in DEXTROSE 5 % IN WATER 100 ML IV SCH ×4 (16:56→21:11)
--- NOTE | 2018-05-24 17:35 | ANES ---
Post Anesthesia Assessment - Vital Signs Vitals: Last Vital Signs Temp 36.4 C 05/24/18 15:45 Pulse 79 05/24/18 15:45 Resp 16 05/24/18 15:45 BP 131/70 05/24/18 15:45 Pulse Ox 99 05/24/18 15:45 Airway Patency: Normal - Mental Status Level Of Consciousness: Awake - Pain Level Pain Score: 2 - Pt c/o mild rt shoulder pain - N/V Assessment Nausea/Vomiting Presence: None Dehydration:: No
[2018-05-24] MEDS: oxyCODONE HCL/ACETAMINOPHEN 1 TAB TABLET PO PRN ×2 (19:08→23:19)
[2018-05-24] MEDS: rOPINIRole HCL 1 MG TABLET PO SCH (20:04)
[2018-05-24] MEDS: FINASTERIDE 5 MG TABLET PO SCH (20:05)
[2018-05-24] MEDS: SENNOSIDES/DOCUSATE SODIUM 1 TAB TABLET PO SCH (20:06)
[2018-05-24] MEDS: ASPIRIN 81 MG TABLET.DR PO SCH (20:06)
[2018-05-24] MEDS: FOLIC ACID 1 MG TABLET PO SCH (20:07)
[2018-05-24] MEDS: sulfaSALAzine 500 MG TABLET PO SCH (20:07)
[2018-05-24] MEDS: NORTRIPTYLINE HCL 25 MG CAPSULE PO SCH (20:09)
[2018-05-24] MEDS ORDERED: DESMOPRESSIN ACETATE 0.2 MG PO SCH (21:00)
[2018-05-24] MEDS: MORPHINE SULFATE 15 MG TABLET.SA PO SCH (21:10)
[2018-05-24] MEDS: DALFAMPRIDINE 10 MG PO SCH (21:10)
[2018-05-24] MEDS: DIMETHYL FUMARATE 240 MG PO SCH (21:11)
[2018-05-24] MEDS: METHYLPHENIDATE HCL 5 MG TABLET PO SCH (21:11)
[2018-05-25] MEDS: ceFAZolin SODIUM 1 GM in DEXTROSE 5 % IN WATER 100 ML IV SCH ×2 (03:49)
[2018-05-25] MEDS: oxyCODONE HCL/ACETAMINOPHEN 1 TAB TABLET PO PRN ×4 (04:34→21:37)
[2018-05-25 06:06] LABS: Anion Gap 12.5 mmol/L (6.8-13.8); BUN/Creatinine Ratio 13.5 (9.0-21.6); Calcium * 8.6 mg/dL (7.9-10.9); Carbon Dioxide 25.6 mmol/L (24-32.6); Estimated Creat Clear 114.4; Hematocrit 29.8 % (42.0-52.0); Hemoglobin 9.4 gm/dL (13.5-18.0); Mean Cell Volume 75.6 fl (78-100); Mean Corpuscular Hemoglobin 23.9 pg (27-31); Mean Corpuscular Hgb Conc 31.5 g/dl (32-36); Mean Platelet Volume 10.7 fl (8-11.3); Platelet Count 268 K/mm3 (150-450); Potassium 4.1 mmol/L (3.4-4.6); Red Blood Count 3.94 M/mm3 (4.7-6.0); Red Cell Distribution Width 15.2 % (11.5-14.0); White Blood Count 8.7 K/mm3 (4.0-10.5)
[2018-05-25] MEDS: rOPINIRole HCL 1 MG TABLET PO SCH ×3 (06:40→21:02)
[2018-05-25] MEDS ORDERED: PANTOPRAZOLE SODIUM 40 MG TABLET.EC PO PRN (07:00)
[2018-05-25] MEDS: FOLIC ACID 1 MG TABLET PO SCH ×2 (08:26→21:00)
[2018-05-25] MEDS: MORPHINE SULFATE 15 MG TABLET.SA PO SCH ×2 (08:26→20:57)
[2018-05-25] MEDS: ASPIRIN 81 MG TABLET.DR PO SCH (08:27)
[2018-05-25] MEDS: sulfaSALAzine 500 MG TABLET PO SCH ×2 (08:27→20:58)
[2018-05-25] MEDS: TAMSULOSIN HCL 0.4 MG CAP.SR.24H PO SCH (08:27)
[2018-05-25] MEDS: HYDROXYCHLOROQUINE SULFATE 200 MG TABLET PO SCH (08:27)
[2018-05-25] MEDS: SOLIFENACIN SUCCINATE 10 MG TABLET PO SCH (08:28)
[2018-05-25] MEDS: CHOLECALCIFEROL 5,000 UNIT TABLET PO SCH (08:28)
[2018-05-25] MEDS: METHYLPHENIDATE HCL 5 MG TABLET PO SCH ×2 (08:32→21:03)
[2018-05-25] MEDS: DALFAMPRIDINE 10 MG PO SCH ×4 (12:33→20:59)
[2018-05-25] MEDS: DIMETHYL FUMARATE 240 MG PO SCH ×4 (12:33→21:00)
[2018-05-25] MEDS: MINOCYCLINE HCL 100 MG PO SCH ×2 (12:36→12:40)
--- NOTE | 2018-05-25 15:48 | PN ---
Subjective - Date and Time Seen Date: 05/25/18 Time: 08:00 Subjective Narrative: Subjective: Reports moderate aching in the left hip pain. Was able to get up to the chair with therapy. Pain is well-controlled. Voiding without any complications. Tolerating by mouth intake. Denies any nausea or vomiting. Denies calf pain. Slept well. Physical exam: Alert and oriented to person, place and time Left lower Extremity: Palpable dorsalis pedis pulse. Sensation grossly intact to light touch. Dressings clean and dry. Able to flex and extend ankle and toes. No excessive drainage. Calf and thigh are soft and nontender. Assessment: Postop day 1 status post open reduction internal fixation of left greater trochanteric femur fracture status post left total hip arthroplasty. Plan: Due to the need for pain control, post-operative limited mobility, protection of the surgical site and joint, monitoring of the wound, and the management of chronic medical conditions, he requires continued inpatient care. Continue with physical and occupational therapy weightbearing as tolerated. Continue with anticoagulation. 24 hours postoperative prophylactic antibiotics. Pain control with goal to rely on oral medications. Continue bowel regimen. Will need 6 weeks with walker or assitive device to protect joint while ambulating during the recovery process. Discharge planning. Objective - Vitals Vitals: Last Vital Signs Temp 36.8 C 05/25/18 15:13 Pulse 104 H 05/25/18 15:13 Resp 14 05/25/18 15:13 BP 110/65 05/25/18 15:13 Pulse Ox 100 05/25/18 15:13 - Abnormal Lab Findings Abnormal Lab Findings: Abnormal Lab Results 05/25/18 05/25/18 Range/Units 05:49 05:49 RBC 3.94 L (4.7-6.0) M/mm3 Hgb 9.4 L (13.5-18.0) gm/dL Hct 29.8 L (42.0-52.0) % MCV 75.6 L (78-100) fl MCH 23.9 L (27-31) pg MCHC 31.5 L (32-36) g/dl RDW 15.2 H (11.5-14.0) % Random Glucose 117 H (70-110) mg/dL [facility] Physician Documentation - Urinary Catheter Management Urethral (Trevizo) Date of Insertion: 07/09/18 Time of Insertion: 11:15 Date of Removal: 05/25/18 Time of Removal: 06:50 Assessment/Plan - Problems/Diagnosis (1) Periprosthetic fracture around internal prosthetic hip joint Problem: Acute Qualifiers: Encounter type: subsequent encounter Laterality: left Qualified Code(s): M97.02XD - Periprosthetic fracture around internal prosthetic left hip joint, subsequent encounter; T84.041D - Periprosthetic fracture around internal prosthetic left hip joint, subsequent encounter (2) Acute blood loss anemia Problem: Acute (3) Status post total hip replacement, left Problem: Chronic (4) Anxiety Problem: Chronic (5) Arthritis, rheumatoid Problem: Chronic (6) GERD (gastroesophageal reflux disease) Problem: Chronic (7) Hypertension Problem: Chronic (8) Multiple sclerosis Problem: Chronic (9) Obesity Problem: Chronic Qualifiers: Obesity classification: adult class 3 (BMI >= 40) Body mass index: BMI 40.0 -44.9
[2018-05-25] MEDS: ASPIRIN 325 MG TABLET.DR PO SCH (20:58)
[2018-05-25] MEDS: NORTRIPTYLINE HCL 25 MG CAPSULE PO SCH (21:01)
[2018-05-25] MEDS: FINASTERIDE 5 MG TABLET PO SCH (21:02)
[2018-05-25] MEDS: SENNOSIDES/DOCUSATE SODIUM 1 TAB TABLET PO SCH (21:03)
[2018-05-26] MEDS: oxyCODONE HCL/ACETAMINOPHEN 1 TAB TABLET PO PRN ×2 (01:46→06:28)
[2018-05-26] MEDS: rOPINIRole HCL 1 MG TABLET PO SCH (06:29)
[2018-05-26] MEDS: FOLIC ACID 1 MG TABLET PO SCH (08:07)
[2018-05-26] MEDS: MORPHINE SULFATE 15 MG TABLET.SA PO SCH (08:07)
[2018-05-26] MEDS: CHOLECALCIFEROL 5,000 UNIT TABLET PO SCH (08:08)
[2018-05-26] MEDS: TAMSULOSIN HCL 0.4 MG CAP.SR.24H PO SCH (08:09)
[2018-05-26] MEDS: HYDROXYCHLOROQUINE SULFATE 200 MG TABLET PO SCH (08:09)
[2018-05-26] MEDS: SOLIFENACIN SUCCINATE 10 MG TABLET PO SCH (08:09)
[2018-05-26] MEDS: sulfaSALAzine 500 MG TABLET PO SCH (08:10)
[2018-05-26] MEDS: ASPIRIN 325 MG TABLET.DR PO SCH (08:10)
[2018-05-26] MEDS: DALFAMPRIDINE 10 MG PO SCH (08:11)
[2018-05-26] MEDS: MINOCYCLINE HCL 100 MG PO SCH (08:11)
[2018-05-26] MEDS: DIMETHYL FUMARATE 240 MG PO SCH (08:12)
--- NOTE | 2018-05-26 10:27 | DS ---
(1) Status post open reduction with internal fixation of fracture Diagnosis(s): Greater trochanter left hip Problem: Acute (2) Arthritis, rheumatoid Problem: Chronic (3) Obesity Problem: Chronic Qualifiers: Obesity classification: adult class 3 (BMI >= 40) Body mass index: BMI 40.0 -44.9 (4) Anxiety Problem: Chronic (5) Asthma Problem: Chronic (6) GERD (gastroesophageal reflux disease) Problem: Chronic (7) Status post total hip replacement, left Problem: Chronic (8) Multiple sclerosis Problem: Chronic (9) Hypertension Problem: Chronic Description of Stay: Mr Adler was admitted to the floor after undergoing left hip open reduction internal fixation of greater trochanteric fracture. Tolerated this well. Was admitted to the floor postoperatively for 24 hours of IV antibiotics, pain control, medical comanagement, and occupational and physical therapy. OT and PT were consulted to assist with activities of daily living and ambulation. Was made weightbearing as tolerated with range of motion with anterior hip precautions and no active abduction . Pain was initially controlled with IV regimen. This was transitioned to oral once tolerating a by mouth intake. Was resumed on home diet and medications. Had a Trevizo catheter inserted and the operating room which was discontinued on postoperative day 1. LEYLA hose and aspirin were utilized for DVT prophylaxis. Vital signs remained stable to the hospital course. Physical examination throughout the hospital course showed an extremity that had sensation that was intact to light touch, palpable pulses, a benign wound, motor intact to the toes, ankle, and knee. Once an oral pain regimen was tolerated and physical therapy goals were met, it was felt that they were stable for discharge to home. Instructions: Continue with weightbearing as tolerated and range of motion with anterior hip precautions and no active abduction. Keep incision clean and dry with bathing. If you note any drainage or for comfort you can cover with dry gauze and tape. Change every 2-3 days as needed. Continue with physical therapy. Resume home diet. Report any fever over 101.5 Fahrenheit, uncontrolled pain, increased drainage, foul odor of drainage, new or increased calf pain or shortness of breath, or any other significant complaints. A 325mg twice daily aspirin will be started after finishing anticoagulation if not allergic. Continue with LEYLA hose on the operative extremity until instructed otherwise. No driving until instructed otherwise. Follow up in approximately 10-14 days. Procedures Performed: see notes below List Procedures: Open reduction internal fixation of left hip greater trochanteric fracture Results and Findings: Lab Pending Results 05/23/18 05/24/18 05/25/18 Unknown 09:17 05:49 WBC 5.5 8.7 D RBC 4.21 L 3.94 L Hgb 10.0 L 9.4 L Hct 32.1 L 29.8 L MCV 76.2 L 75.6 L MCH 23.8 L 23.9 L MCHC 31.2 L 31.5 L RDW 15.6 H 15.2 H Plt Count 228 268 MPV 10.0 10.7 Immature Gran % (Auto) 0.50 H Immature Gran # (Auto) 0.03 Neutrophils % 59.9 Lymphocytes % 21.5 Monocytes % 11.9 H Eosinophils % 5.7 H Basophils % 0.5 Nucleated RBC % 0.0 Neutrophils # 3.3 Lymphocytes # 1.18 L Monocytes # 0.7 Eosinophils # 0.3 Absolute Basophils 0.0 Sodium 137 Plasma Sodium 137 Potassium 4.2 Chloride 102 Carbon Dioxide 30.4 Anion Gap 8.8 BUN 15 Creatinine 0.77 Est GFR (Non-Af Amer) 114 BUN/Creatinine Ratio 19.5 Random Glucose 90 Calcium 8.6 05/25/18 05:49 WBC RBC Hgb Hct MCV MCH MCHC RDW Plt Count MPV Immature Gran % (Auto) Immature Gran # (Auto) Neutrophils % Lymphocytes % Monocytes % Eosinophils % Basophils % Nucleated RBC % Neutrophils # Lymphocytes # Monocytes # Eosinophils # Absolute Basophils Sodium 138 Plasma Sodium 138 Potassium 4.1 Chloride 104 Carbon Dioxide 25.6 Anion Gap 12.5 BUN 10 Creatinine 0.74 Est GFR (Non-Af Amer) 119 BUN/Creatinine Ratio 13.5 Random Glucose 117 H Calcium 8.6 Discharge Location: Home Disposition: [facility] Home Health Condition: Good Discharge Activity: Weight bearing, Other - anterior hip precautions with no active abduction Additional Patient Instructions (free text): [facility] HH with PT to evaluate and treat, home care, please call and fax them discharge orders. Follow up [facility] Dr Hastings office appointment on ThursdayJune 08 at 2: 00pm. Prescriptions (Any new or edited meds): Morphine Sulfate [Ms Contin] 15 mg PO Q12H #20 tablet.sa oxyCODONE HCL/ACETAMINOPHEN [Percocet 5 MG/325 MG] 2 tab PO Q4H PRN #90 tablet PRN Reason: Moderate Pain (Pain Scale 4-6) Sennosides/Docusate Sodium [Senokot-S] 2 tab PO HS #30 tablet Complete Home Medications List: Complete Home Medication List: Tamsulosin HCl 0.4 mg PO DAILY 12/17/12 Hydroxychloroquine Sulfate [Plaquenil] 200 mg PO DAILY 02/16/13 Lansoprazole [Prevacid] 30 mg PO QAM PRN 02/16/13 rOPINIRole HCL [Requip] 2 mg PO 0700,1200 03/24/14 Cholecalciferol (Vitamin D3) [Vitamin D3] 5,000 unit PO DAILY 03/10/18 Dimethyl Fumarate [Tecfidera] 240 mg PO BID 03/10/18 Finasteride [Proscar] 5 mg PO HS 03/10/18 Methylphenidate HCl [Ritalin] 10 mg PO BID 03/10/18 Nortriptyline HCl 50 mg PO HS 03/10/18 Solifenacin Succinate [Vesicare] 10 mg PO DAILY 03/10/18 sulfaSALAzine [Azulfidine] 1,500 mg PO BID 03/10/18 Dalfampridine [Ampyra] 10 mg PO BID 03/17/18 Desmopressin Acetate [Ddavp] 0.2 mg PO HS 03/17/18 Folic Acid 10 mg PO BID 03/17/18 Multivit-Min/FA/Vit K/Lycopene [One-A-Day Men's 50 Plus Tablet] 1 ea PO DAILY rOPINIRole HCL [Requip] 3 mg PO HS 03/17/18 Minocycline HCl [Minocin] 100 mg PO DAILY 03/29/18 Morphine Sulfate [Ms Contin] 15 mg PO Q12H #20 tablet. 03/31/18 Sennosides/Docusate Sodium [Senokot-S] 2 tab PO HS #30 tab 03/31/18 tramadol 50 mg tablet See Label Instructions PO .COMPLEX PRN #40 tab 05/21/18 Aspirin [Aspirin Enteric Coated] 325 mg PO BID tablet. 05/26/18 Morphine Sulfate [Ms Contin] 15 mg PO Q12H #20 tablet. 05/26/18 Sennosides/Docusate Sodium [Senokot-S] 2 tab PO HS #30 tablet 05/26/18 oxyCODONE HCL/ACETAMINOPHEN [Percocet 5 MG/325 MG] 2 tab PO Q4H PRN #90 tablet 05/26/18
[2018-05-26 10:51] VITALS: BP 126/68
== END 2018-05-26 11:45 | disposition home health service (06) | DRG 481 ==
LOC: MS 08:56
PROVIDERS: ADMIT Orthopaedic Surgery; ATTEND Orthopaedic Surgery
CPT/HCPCS: 36415; 73502; 80048; 85025; 85027; 97116; 97162; 97165; 97535